=== PATIENT | female | born 1950 | race African-American/Black ===

== ENCOUNTER 2021-07-27 21:51 | Inpatient (IN) ==
[2021-07-28 00:36] LABS: Basophils % 0.2 % (0.0-0.8); Hematocrit 23.5 VOL% (35.7-47.0); Hemoglobin 7.8 GM/DL (12.0-16.0); Lymphocytes # 1.6 10*3/uL (1.4-4.0); Lymphocytes % 15.7 % (21.3-54.2); Mean Corpuscular HGB Conc 33.2 GM/DL (32-36); Mean Corpuscular Volume 88.7 FL (87-102); Mean Platelet Volume 10.4 FL (9.6-12.0); Monocytes % 3.1 % (1.7-12.7); Platelet Count 250 T/CUMM (130-400); Red Blood Count 2.65 MC/CUMM (3.8-5.5); Red Cell Distribution Width 13.4 % (9.3-17.3); White Blood Count 10.5 T/CUMM (4-12)
[2021-07-28 00:38] LABS: Alanine Aminotransferase 22 U/L (13-56); Albumin 3.2 G/DL (3.4-5.0); Alkaline Phosphatase 53 U/L (45-117); Aspartate Amino Transferase 11 U/L (0-37); Bilirubin,Total < 0.39 MG/DL (0.20-1.00); Blood Urea Nitrogen 21 MG/DL (7-18); Calcium 9.2 MG/DL (8.5-10.1); Carbon Dioxide 26 MMOL/L (21-32); Estimated Glom Filtration Rate 52 ML/MIN; Glucose 152 MG/DL (74-106); Osmolality,Calculated 286.3 MOS/KG (273-304); Potassium 3.4 MMOL/L (3.5-5.1); Sodium 141 MMOL/L (136-145); Total Protein 6.6 G/DL (6.4-8.2)
[2021-07-28] MEDS ORDERED: PANTOPRAZOLE 40 MG VIAL IV STA (01:30)
[2021-07-28] MEDS ORDERED: SODIUM CHLORIDE 0.9% 1,000 ML IV STA (01:36)
[2021-07-28] MEDS ORDERED: ONDANSETRON 4 MG/2 ML VIAL IV STA (01:36)
[2021-07-28] MEDS ORDERED: ACETAMINOPHEN 325 MG TABLET PO PRN (02:28)
[2021-07-28] MEDS ORDERED: GLUCAGON 1 MG VIAL IM PRN (02:28)
[2021-07-28] MEDS ORDERED: DEXTROSE 50% 25 GM/50 ML SYRINGE IV PRN (02:28)
[2021-07-28] MEDS ORDERED: ONDANSETRON 4 MG/2 ML VIAL IV PRN (02:28)
[2021-07-28 02:47] LABS: INR 0.9; PT Patient Result 10.6 SECS (10.5-12.0)
[2021-07-28] MEDS: LACTATED RINGERS 1,000 ML IV SCH ×3 (03:56→23:51)
[2021-07-28 04:05] LABS: Hematocrit 21.1 VOL% (35.7-47.0); Hemoglobin 6.7 GM/DL (12.0-16.0)
[2021-07-28] MEDS ORDERED: SODIUM CHLORIDE 0.9% 1,000 ML IV PRN (04:44)
[2021-07-28] MEDS: PANTOPRAZOLE 40 MG VIAL IV SCH ×2 (11:45→21:06)
[2021-07-28] MEDS: INSULIN LISPRO 100 UNIT/ML SUBCUT SCH ×3 (11:51→21:04)
[2021-07-28 12:29] LABS: Hematocrit 25.8 VOL% (35.7-47.0); Hemoglobin 8.5 GM/DL (12.0-16.0)
[2021-07-28 20:23] LABS: Hematocrit 25.7 VOL% (35.7-47.0); Hemoglobin 8.8 GM/DL (12.0-16.0)
[2021-07-29 05:21] LABS: Basophils % 0.3 % (0.0-0.8); Eosinophils # 0.1 10*3/uL (0.0-0.87); Eosinophils % 1.9 % (0.00-10.9); Hematocrit 26.1 VOL% (35.7-47.0); Hemoglobin 8.5 GM/DL (12.0-16.0); Immature Granulocytes % 0.3 %; Immature Granulocytes Absolute 0.02 #; Lymphocytes # 2.3 10*3/uL (1.4-4.0); Lymphocytes % 35.4 % (21.3-54.2); Mean Corpuscular HGB Conc 32.6 GM/DL (32-36); Mean Corpuscular Volume 90.9 FL (87-102); Mean Platelet Volume 9.9 FL (9.6-12.0); Monocytes % 6.7 % (1.7-12.7); Neutrophils % 55.4 % (38.7-73.9); Platelet Count 188 T/CUMM (130-400); Red Blood Count 2.87 MC/CUMM (3.8-5.5); White Blood Count 6.5 T/CUMM (4-12)
[2021-07-29] MEDS: LACTATED RINGERS 1,000 ML IV SCH ×4 (05:35→17:57)
[2021-07-29 05:41] LABS: Calcium 8.3 MG/DL (8.5-10.1); Osmolality,Calculated 287.7 MOS/KG (273-304); Potassium 3.3 MMOL/L (3.5-5.1)
[2021-07-29] MEDS: INSULIN LISPRO 100 UNIT/ML SUBCUT SCH ×4 (08:03→21:00)
[2021-07-29] MEDS: PANTOPRAZOLE 40 MG VIAL IV SCH ×2 (08:43→20:29)
[2021-07-29] MEDS ORDERED: MAGNESIUM SULF RIDER 2 GM/50 ML PREMIX IV PRN (11:45)
[2021-07-29] MEDS ORDERED: MAGNESIUM SULF RIDER 4 GM/100 ML PREMIX IV PRN (11:45)
[2021-07-29] MEDS: LOSARTAN 50 MG TABLET PO SCH (12:18)
[2021-07-29] MEDS: POTASSIUM CHLORIDE 20 MEQ TABLET PO PRN ×3 (12:18→17:56)
[2021-07-29] MEDS: DORZOLAMIDE/TIMOLOL OPH SOLN 10 ML BOTTLE BOTH EYES SCH ×2 (12:42→20:29)
[2021-07-30] MEDS: LACTATED RINGERS 1,000 ML IV SCH ×4 (01:15→13:44)
[2021-07-30 01:52] LABS: Calcium 7.9 MG/DL (8.5-10.1); Potassium 3.8 MMOL/L (3.5-5.1)
[2021-07-30 01:56] LABS: Basophils % 0.1 % (0.0-0.8); Eosinophils % 0.2 % (0.00-10.9); Immature Granulocytes % 0.5 %; Immature Granulocytes Absolute 0.05 #; Lymphocytes # 1.5 10*3/uL (1.4-4.0); Lymphocytes % 15.3 % (21.3-54.2); Mean Corpuscular HGB Conc 32.2 GM/DL (32-36); Mean Corpuscular Volume 90.6 FL (87-102); Mean Platelet Volume 9.8 FL (9.6-12.0); Neutrophils % 80.9 % (38.7-73.9); Platelet Count 195 T/CUMM (130-400); Red Cell Distribution Width 13.9 % (9.3-17.3)
[2021-07-30 02:02] LABS: Hematocrit 21.1 VOL% (35.7-47.0); Hemoglobin 6.8 GM/DL (12.0-16.0); Red Blood Count 2.33 MC/CUMM (3.8-5.5); White Blood Count 9.9 T/CUMM (4-12)
[2021-07-30] MEDS ORDERED: SODIUM CHLORIDE 0.9% 1,000 ML IV PRN (06:05)
[2021-07-30] MEDS: INSULIN LISPRO 100 UNIT/ML SUBCUT SCH ×4 (07:40→21:45)
[2021-07-30] MEDS ORDERED: ETOMIDATE 40 MG/20 ML VIAL IV ONE (10:00)
[2021-07-30] MEDS ORDERED: LIDOCAINE 2% 5 ML VIAL ONE (10:00)
[2021-07-30] MEDS ORDERED: propofoL 200 MG/20 ML VIAL IV ONE (10:00)
[2021-07-30] MEDS: DORZOLAMIDE/TIMOLOL OPH SOLN 10 ML BOTTLE BOTH EYES SCH ×2 (10:32→21:45)
[2021-07-30] MEDS: LOSARTAN 50 MG TABLET PO SCH (10:32)
[2021-07-30] MEDS: PANTOPRAZOLE 40 MG VIAL IV SCH ×2 (12:39→21:45)
[2021-07-30] MEDS: POTASSIUM CHLORIDE 20 MEQ TABLET PO PRN (18:05)
[2021-07-30 19:06] LABS: Hematocrit 28.4 VOL% (35.7-47.0)
[2021-07-30 19:07] LABS: Hemoglobin 9.4 GM/DL (12.0-16.0)
[2021-07-31] MEDS: LACTATED RINGERS 1,000 ML IV SCH ×4 (01:32→20:47)
[2021-07-31 05:49] LABS: Basophils % 0.3 % (0.0-0.8); Eosinophils # 0.1 10*3/uL (0.0-0.87); Eosinophils % 1.5 % (0.00-10.9); Hematocrit 27.4 VOL% (35.7-47.0); Hemoglobin 8.9 GM/DL (12.0-16.0); Immature Granulocytes % 0.4 %; Immature Granulocytes Absolute 0.03 #; Lymphocytes # 2.1 10*3/uL (1.4-4.0); Lymphocytes % 29.4 % (21.3-54.2); Mean Corpuscular HGB Conc 32.5 GM/DL (32-36); Mean Corpuscular Volume 89.5 FL (87-102); Mean Platelet Volume 9.6 FL (9.6-12.0); Neutrophils % 61.4 % (38.7-73.9); Platelet Count 202 T/CUMM (130-400); Red Blood Count 3.06 MC/CUMM (3.8-5.5); Red Cell Distribution Width 14.2 % (9.3-17.3); White Blood Count 7.2 T/CUMM (4-12)
[2021-07-31 06:09] LABS: Albumin 2.8 G/DL (3.4-5.0); Bilirubin,Total 0.6 MG/DL (0.20-1.00); Calcium 8.4 MG/DL (8.5-10.1); Potassium 3.4 MMOL/L (3.5-5.1); Total Protein 5.5 G/DL (6.4-8.2)
[2021-07-31] MEDS: LOSARTAN 50 MG TABLET PO SCH (08:55)
[2021-07-31] MEDS: BISACODYL 5 MG TABLET PO SCH ×3 (08:55→23:55)
[2021-07-31] MEDS: PANTOPRAZOLE 40 MG VIAL IV SCH ×2 (08:56→21:04)
[2021-07-31] MEDS: DORZOLAMIDE/TIMOLOL OPH SOLN 10 ML BOTTLE BOTH EYES SCH ×2 (08:56→21:04)
[2021-07-31] MEDS ORDERED: POTASSIUM CHLORIDE 20 MEQ TABLET PO ONE (09:00)
[2021-07-31] MEDS ORDERED: SODIUM CHLORIDE 0.9% 1,000 ML IV PRN (09:16)
[2021-07-31] MEDS: INSULIN LISPRO 100 UNIT/ML SUBCUT SCH ×4 (09:35→20:47)
[2021-07-31 15:02] LABS: Hematocrit 28.9 VOL% (35.7-47.0); Hemoglobin 9.4 GM/DL (12.0-16.0)
[2021-07-31] MEDS ORDERED: POLYETHYLENE GLYCOL POWDER 255 GM BOTTLE PO ONE (18:00)
[2021-07-31] MEDS ORDERED: MAGNESIUM CITRATE 300 ML BOTTLE PO ONE (21:00)
[2021-08-01] MEDS ORDERED: LACTATED RINGERS 1,000 ML IV SCH (06:30)
[2021-08-01 06:41] LABS: Basophils % 0.3 % (0.0-0.8); Eosinophils # 0.1 10*3/uL (0.0-0.87); Eosinophils % 1.4 % (0.00-10.9); Hemoglobin 8.9 GM/DL (12.0-16.0); Immature Granulocytes % 0.4 %; Immature Granulocytes Absolute 0.03 #; Lymphocytes # 1.9 10*3/uL (1.4-4.0); Lymphocytes % 25.8 % (21.3-54.2); Mean Platelet Volume 9.6 FL (9.6-12.0); Monocytes % 6.9 % (1.7-12.7); Neutrophils % 65.2 % (38.7-73.9); Platelet Count 236 T/CUMM (130-400); Red Cell Distribution Width 14.4 % (9.3-17.3); White Blood Count 7.4 T/CUMM (4-12)
[2021-08-01 06:55] LABS: Calcium 8.4 MG/DL (8.5-10.1); Osmolality,Calculated 280.1 MOS/KG (273-304); Potassium 3.1 MMOL/L (3.5-5.1)
[2021-08-01] MEDS ORDERED: LIDOCAINE 2% 5 ML VIAL ONE (07:26)
[2021-08-01] MEDS ORDERED: propofoL 200 MG/20 ML VIAL IV ONE ×2 (07:26→07:52)
[2021-08-01] MEDS ORDERED: POTASSIUM CHLORIDE RIDER 10 MEQ/100 ML PREMIX IV PRN (08:37)
[2021-08-01] MEDS: PANTOPRAZOLE 40 MG VIAL IV SCH (09:12)
[2021-08-01] MEDS: INSULIN LISPRO 100 UNIT/ML SUBCUT SCH ×2 (09:12→11:34)
[2021-08-01] MEDS: DORZOLAMIDE/TIMOLOL OPH SOLN 10 ML BOTTLE BOTH EYES SCH (09:12)
[2021-08-01] MEDS: POTASSIUM CHLORIDE 20 MEQ TABLET PO PRN ×4 (09:12→15:40)
[2021-08-01 11:37] VITALS: BP 138/65
== END 2021-08-01 17:15 | disposition home or self-care (01) | DRG 378 ==
LOC: N.ED 21:51 → N.EDINP 21:51 → SUATTDRO 07-28 02:44 → N.EDINP 07-28 05:19 → N.3E 07-28 06:07
PROVIDERS: ADMIT Internal Medicine; ATTEND Internal Medicine

== ENCOUNTER 2021-08-03 11:29 | Observation (INO) ==
[2021-08-03 20:04] LABS: Basophils % 0.3 % (0.0-0.8); Eosinophils # 0.1 10*3/uL (0.0-0.87); Eosinophils % 0.8 % (0.00-10.9); Hematocrit 29.4 VOL% (35.7-47.0); Hemoglobin 9.8 GM/DL (12.0-16.0); Immature Granulocytes % 0.4 %; Immature Granulocytes Absolute 0.04 #; Lymphocytes # 2.7 10*3/uL (1.4-4.0); Lymphocytes % 28.9 % (21.3-54.2); Mean Corpuscular HGB Conc 33.3 GM/DL (32-36); Mean Corpuscular Volume 88.8 FL (87-102); Mean Platelet Volume 9.5 FL (9.6-12.0); Monocytes % 5.2 % (1.7-12.7); Neutrophils % 64.4 % (38.7-73.9); Platelet Count 334 T/CUMM (130-400); Red Blood Count 3.31 MC/CUMM (3.8-5.5); Red Cell Distribution Width 14.6 % (9.3-17.3); White Blood Count 9.2 T/CUMM (4-12)
[2021-08-03 20:36] LABS: INR 0.9; Partial Thromboplastin Time 22.8 SECS (23.8-32.1)
[2021-08-03 21:06] LABS: Albumin 3.3 G/DL (3.4-5.0); Bilirubin,Total 0.5 MG/DL (0.20-1.00); Calcium 8.5 MG/DL (8.5-10.1); Osmolality,Calculated 277.5 MOS/KG (273-304); Potassium 3.2 MMOL/L (3.5-5.1); Total Protein 6.8 G/DL (6.4-8.2)
[2021-08-03] MEDS ORDERED: POTASSIUM CHLORIDE 20 MEQ TABLET PO STA (21:38)
[2021-08-03] MEDS ORDERED: GLUCAGON 1 MG VIAL IM PRN (23:21)
[2021-08-03] MEDS ORDERED: DEXTROSE 50% 25 GM/50 ML SYRINGE IV PRN (23:21)
[2021-08-03] MEDS ORDERED: ACETAMINOPHEN 325 MG TABLET PO PRN (23:22)
[2021-08-03] MEDS ORDERED: ONDANSETRON 4 MG/2 ML VIAL IV PRN (23:22)
[2021-08-04] MEDS: SODIUM CHLORIDE 0.9% 1,000 ML IV SCH ×3 (01:38→16:04)
[2021-08-04] MEDS ORDERED: POTASSIUM CHLORIDE RIDER 10 MEQ/100 ML PREMIX IV PRN (02:31)
[2021-08-04] MEDS ORDERED: MAGNESIUM SULF RIDER 4 GM/100 ML PREMIX IV PRN (02:31)
[2021-08-04] MEDS ORDERED: MAGNESIUM SULF RIDER 2 GM/50 ML PREMIX IV PRN (02:31)
[2021-08-04] MEDS ORDERED: POTASSIUM CHLORIDE 20 MEQ TABLET PO PRN (02:31)
[2021-08-04] MEDS: PANTOPRAZOLE 40 MG VIAL IV SCH ×3 (02:40→20:33)
[2021-08-04 02:55] LABS: Hematocrit 26.6 VOL% (35.7-47.0); Hemoglobin 8.6 GM/DL (12.0-16.0)
[2021-08-04 04:05] LABS: Bilirubin,Total 0.5 MG/DL (0.20-1.00); Calcium 8.7 MG/DL (8.5-10.1); Osmolality,Calculated 280.3 MOS/KG (273-304); Potassium 3.5 MMOL/L (3.5-5.1); Total Protein 6.1 G/DL (6.4-8.2)
[2021-08-04] MEDS ORDERED: SODIUM CHLORIDE 0.9% 1,000 ML IV PRN (04:17)
[2021-08-04] MEDS ORDERED: SIMETHICONE CHEW 125 MG TABLET PO PRN (05:55)
[2021-08-04 06:29] LABS: Hematocrit 26.7 VOL% (35.7-47.0); Hemoglobin 8.5 GM/DL (12.0-16.0)
[2021-08-04] MEDS ORDERED: MAGNESIUM CITRATE 300 ML BOTTLE PO ONE ×2 (06:29→18:00)
[2021-08-04] MEDS ORDERED: PANTOPRAZOLE 40 MG VIAL IV SCH (09:00)
[2021-08-04] MEDS ORDERED: POLYETHYLENE GLYCOL POWDER 17 GM PACK ONE (10:35)
[2021-08-04] MEDS: CLARITHROMYCIN 500 MG TABLET PO SCH ×2 (12:44→20:32)
[2021-08-04 13:42] LABS: Hematocrit 26.3 VOL% (35.7-47.0); Hemoglobin 8.5 GM/DL (12.0-16.0)
[2021-08-04] MEDS: POLYETHYLENE GLYCOL POWDER 17 GM PACK PO SCH ×2 (16:04→20:30)
[2021-08-04] MEDS: metFORMIN 500 MG TABLET PO SCH (17:54)
[2021-08-04 18:08] LABS: Hematocrit 29.2 VOL% (35.7-47.0); Hemoglobin 9.3 GM/DL (12.0-16.0)
[2021-08-04] MEDS: DORZOLAMIDE/TIMOLOL OPH SOLN 10 ML BOTTLE BOTH EYES SCH (20:31)
[2021-08-04] MEDS: FERROUS SULFATE 325 MG TABLET PO SCH (20:32)
[2021-08-04] MEDS: AMOXICILLIN 500 MG CAPSULE PO SCH (20:33)
[2021-08-04] MEDS ORDERED: PANTOPRAZOLE 40 MG TABLET PO SCH (21:00)
[2021-08-04] MEDS ORDERED: AMOXICILLIN 875 MG TABLET PO SCH (21:00)
[2021-08-04] MEDS ORDERED: CLARITHROMYCIN 500 MG TABLET PO SCH (21:00)
[2021-08-05] MEDS: SODIUM CHLORIDE 0.9% 1,000 ML IV SCH ×3 (01:14→17:23)
[2021-08-05 08:51] LABS: Basophils % 0.3 % (0.0-0.8); Eosinophils # 0.1 10*3/uL (0.0-0.87); Hematocrit 27.6 VOL% (35.7-47.0); Hemoglobin 8.9 GM/DL (12.0-16.0); Immature Granulocytes % 0.2 %; Immature Granulocytes Absolute 0.01 #; Lymphocytes # 1.6 10*3/uL (1.4-4.0); Mean Corpuscular HGB Conc 32.2 GM/DL (32-36); Mean Corpuscular Volume 91.7 FL (87-102); Mean Platelet Volume 8.9 FL (9.6-12.0); Monocytes % 7.2 % (1.7-12.7); Neutrophils % 63.3 % (38.7-73.9); Platelet Count 322 T/CUMM (130-400); Red Blood Count 3.01 MC/CUMM (3.8-5.5)
[2021-08-05 09:10] LABS: Calcium 8.3 MG/DL (8.5-10.1); Osmolality,Calculated 284.7 MOS/KG (273-304); Potassium 3.9 MMOL/L (3.5-5.1)
[2021-08-05] MEDS: LOSARTAN 50 MG TABLET PO SCH (09:46)
[2021-08-05] MEDS: hydroCHLOROthiazide 25 MG TABLET PO SCH (09:46)
[2021-08-05] MEDS: metFORMIN 500 MG TABLET PO SCH ×2 (09:47→17:23)
[2021-08-05] MEDS: AMOXICILLIN 500 MG CAPSULE PO SCH ×2 (09:47→20:45)
[2021-08-05] MEDS: CLARITHROMYCIN 500 MG TABLET PO SCH ×2 (09:47→20:45)
[2021-08-05] MEDS: FERROUS SULFATE 325 MG TABLET PO SCH ×2 (09:47→17:23)
[2021-08-05] MEDS: DORZOLAMIDE/TIMOLOL OPH SOLN 10 ML BOTTLE BOTH EYES SCH ×2 (09:48→20:45)
[2021-08-05] MEDS: POLYETHYLENE GLYCOL POWDER 17 GM PACK PO SCH (09:48)
[2021-08-05] MEDS: PANTOPRAZOLE 40 MG VIAL IV SCH ×2 (09:49→20:45)
[2021-08-06] MEDS: SODIUM CHLORIDE 0.9% 1,000 ML IV SCH ×2 (03:14→05:39)
[2021-08-06 06:01] LABS: Basophils % 0.3 % (0.0-0.8); Eosinophils # 0.1 10*3/uL (0.0-0.87); Eosinophils % 1.4 % (0.00-10.9); Hematocrit 26.7 VOL% (35.7-47.0); Hemoglobin 8.5 GM/DL (12.0-16.0); Immature Granulocytes % 0.3 %; Immature Granulocytes Absolute 0.02 #; Lymphocytes # 1.6 10*3/uL (1.4-4.0); Lymphocytes % 24.8 % (21.3-54.2); Mean Corpuscular HGB Conc 31.8 GM/DL (32-36); Mean Corpuscular Volume 90.5 FL (87-102); Neutrophils % 66.2 % (38.7-73.9); Platelet Count 324 T/CUMM (130-400); Red Blood Count 2.95 MC/CUMM (3.8-5.5); Red Cell Distribution Width 14.6 % (9.3-17.3); White Blood Count 6.6 T/CUMM (4-12)
[2021-08-06 06:13] LABS: Calcium 8.4 MG/DL (8.5-10.1); Osmolality,Calculated 282.8 MOS/KG (273-304); Potassium 3.3 MMOL/L (3.5-5.1)
[2021-08-06] MEDS ORDERED: POTASSIUM CHLORIDE 20 MEQ TABLET PO ONE (07:05)
[2021-08-06 09:20] VITALS: BP 132/81
[2021-08-06] MEDS: metFORMIN 500 MG TABLET PO SCH (10:13)
[2021-08-06] MEDS: CLARITHROMYCIN 500 MG TABLET PO SCH (10:13)
[2021-08-06] MEDS: AMOXICILLIN 500 MG CAPSULE PO SCH (10:13)
[2021-08-06] MEDS: hydroCHLOROthiazide 25 MG TABLET PO SCH (10:13)
[2021-08-06] MEDS: LOSARTAN 50 MG TABLET PO SCH (10:14)
[2021-08-06] MEDS: PANTOPRAZOLE 40 MG VIAL IV SCH (10:14)
[2021-08-06] MEDS: FERROUS SULFATE 325 MG TABLET PO SCH (10:14)
[2021-08-06] MEDS: DORZOLAMIDE/TIMOLOL OPH SOLN 10 ML BOTTLE BOTH EYES SCH (10:14)
[2021-08-06] MEDS: POLYETHYLENE GLYCOL POWDER 17 GM PACK PO SCH (10:15)
== END 2021-08-06 11:45 | disposition home or self-care (01) ==
LOC: N.ED 11:29 → N.EDINP 11:29 → SUATTDRO 08-04 00:19 → N.2E 08-04 15:54
PROVIDERS: ADMIT Internal Medicine; ATTEND Internal Medicine